=== PATIENT | female | born 1995 | race African-American/Black ===

== ENCOUNTER 2019-09-23 16:14 | Emergency (ER) | payer SELFPAY ==
[~2019-09-23] VITALS: Ht 162.6 cm; Wt 86.4 kg
[2019-09-23] MEDS ORDERED: PROAIR HFA0.09 MG/AC IH (16:52)
[2019-09-23 16:55] LABS: COLLECTION METHOD CLEAN CATCH
[2019-09-23 17:02] LABS: MUCOUS Present /lpf; PH 8 (5-8); URINE APPEARANCE Clear; URINE BACTERIA None Seen /hpf; URINE BILIRUBIN Negative (NEGATIVE); URINE BLOOD Negative (NEGATIVE); URINE COLOR Yellow; URINE GLUCOSE Negative (NEGATIVE); URINE KETONE Negative (NEGATIVE); URINE LEUKOCYTE ESTERASE Negative (NEGATIVE); URINE NITRATE Negative (NEGATIVE); URINE PROTEIN(semi-quant) 1+ (NEGATIVE); URINE RBC 0-2 /hpf; URINE UROBILINOGEN Negative (NEGATIVE)
[2019-09-23 17:09] LABS: BASO % 0.4 % (0.0-2.0); EOS # 0.1 (0.0-0.7); EOS % 1.5 % (0-4.0); GRAN # 3.5 (1.4-6.5); GRAN % 52.4 % (42.2-75.2); HEMATOCRIT 30.1 % (37.0-47.0); HEMOGLOBIN 9.3 g/dl (12.5-16.0); LYMPH # 2.6 (1.2-3.4); LYMPH % 38.7 % (20.0-51.0); MEAN CELL VOLUME 77 fl (80.0-100.0); MEAN CORPUSCULAR HEMOGLOBIN 24 pg (27.0-31.0); MEAN CORPUSCULAR HGB CONC 31 g/dl (33.0-37.0); MEAN PLATELET VOLUME 10.2 fl (7.4-10.4); MONO # 0.5 (0.1-0.6); MONO % 6.9 % (1.7-9.3); PLATELET COUNT 365 K/mm3 (130-400); RED BLOOD COUNT 3.93 M/mm3 (4.10-5.30); REDCELL DISTRIBUTION WIDTH-CV 16.6 % (11.5-14.5)
[2019-09-23 17:21] LABS: ALANINE AMINOTRANSFERASE 21 U/L (9-52); ALBUMIN 4.1 gm/dL (3.5-5.0); ALKALINE PHOSPHATASE 70 U/L (50-136); ANION GAP 7 mmol/L (7-16); AST,SGOT 25 U/L (15-37); BILIRUBIN,TOTAL 0.1 mg/dL (0.0-1.0); BLOOD UREA NITROGEN 10 mg/dL (7-17); CALCIUM 8.9 mg/dL (8.4-10.2); CARBON DIOXIDE 26 mmol/L (22-30); CHLORIDE 106 mmol/L (98-107); CREATININE, serum 0.69 (0.52-1.25); GLUCOSE 93 mg/dL (74-106); LIPASE 98 U/L (23-300); SODIUM 139 mmol/L (137-145); TOTAL PROTEIN 7.4 gm/dL (6.4-8.2)
[2019-09-23 17:22] LABS: C-REACTIVE PROTEIN < 0.5 mg/dL (0.0-0.9)
[2019-09-23 19:09] VITALS: BP 128/76; PULSE 86; TEMP 98.4
== END 2019-09-23 19:10 | disposition home or self-care (01) ==
LOC: COL.ER 16:14
PROVIDERS: Emergency Medicine
DX: R10.9 Unspecified abdominal pain (principal); Z87.442 Personal history of urinary calculi
CPT/HCPCS: J2405; J3010; J7030; Q9967

== ENCOUNTER 2019-10-11 12:49 | Emergency (ER) | payer SELFPAY ==
[~2019-10-11] VITALS: Ht 160 cm; Wt 95.5 kg
[~2019-10-11 12:49] MED LIST: PROAIR HFA0.09 MG/AC IH
[2019-10-11 13:01] VITALS: BP 131/72; TEMP 98.1
[2019-10-11 13:13] LABS: COLLECTION METHOD CLEAN CATCH
[2019-10-11] MEDS ORDERED: BACTRIM DS 8001 TAB PO (13:21)
[2019-10-11 13:30] LABS: MUCOUS Present /lpf; PH 6 (5-8); URINE APPEARANCE Hazy; URINE BACTERIA None Seen /hpf; URINE BILIRUBIN Negative (NEGATIVE); URINE BLOOD 3+ (NEGATIVE); URINE COLOR Yellow; URINE GLUCOSE Negative (NEGATIVE); URINE KETONE Negative (NEGATIVE); URINE LEUKOCYTE ESTERASE Trace (NEGATIVE); URINE NITRATE Negative (NEGATIVE); URINE PROTEIN(semi-quant) Negative (NEGATIVE); URINE RBC 0-2 /hpf; URINE UROBILINOGEN Negative (NEGATIVE)
[2019-10-11 14:34] LABS: BASO % 0.5 % (0.0-2.0); EOS # 0.1 (0.0-0.7); EOS % 1.8 % (0-4.0); GRAN # 1.9 (1.4-6.5); GRAN % 44.1 % (42.2-75.2); LYMPH % 45.9 % (20.0-51.0); MEAN CELL VOLUME 77 fl (80.0-100.0); MEAN CORPUSCULAR HEMOGLOBIN 24 pg (27.0-31.0); MEAN CORPUSCULAR HGB CONC 31 g/dl (33.0-37.0); MEAN PLATELET VOLUME 10.2 fl (7.4-10.4); MONO # 0.3 (0.1-0.6); MONO % 7.5 % (1.7-9.3); PLATELET COUNT 383 K/mm3 (130-400); RED BLOOD COUNT 4.21 M/mm3 (4.10-5.30); REDCELL DISTRIBUTION WIDTH-CV 16.7 % (11.5-14.5)
[2019-10-11 14:36] LABS: HEMATOCRIT 32.3 % (37.0-47.0)
[2019-10-11 14:43] LABS: ALANINE AMINOTRANSFERASE 27 U/L (9-52); ALBUMIN 4.3 gm/dL (3.5-5.0); ALKALINE PHOSPHATASE 65 U/L (50-136); ANION GAP 8 mmol/L (7-16); AST,SGOT 29 U/L (15-37); BILIRUBIN,TOTAL < 0.1 mg/dL (0.0-1.0); BLOOD UREA NITROGEN 10 mg/dL (7-17); CALCIUM 8.8 mg/dL (8.4-10.2); CARBON DIOXIDE 25 mmol/L (22-30); CHLORIDE 107 mmol/L (98-107); CREATININE, serum 0.61 (0.52-1.25); GLUCOSE 86 mg/dL (74-106); POTASSIUM 3.7 mmol/L (3.4-5.0); SODIUM 140 mmol/L (137-145); TOTAL PROTEIN 7.7 gm/dL (6.4-8.2)
[2019-10-11] MEDS ORDERED: ZOFRAN ODT4 MG PO (15:27)
[2019-10-11] MEDS ORDERED: NORCO 325 MG-51 TAB PO (15:44)
[2019-10-11 16:10] VITALS: PULSE 72
== END 2019-10-11 16:10 | disposition home or self-care (01) ==
LOC: COL.ER 12:49
PROVIDERS: Emergency Medicine; Physician Assistant
DX: N26.1 Atrophy of kidney (terminal) (principal); R10.9 Unspecified abdominal pain; R31.9 Hematuria, unspecified; J45.909 Unspecified asthma, uncomplicated
CPT/HCPCS: J1885; J2405; J7030